=== PATIENT | male | born 1995 | race Caucasian/White ===

== ENCOUNTER 2018-03-11 19:10 | Emergency (ER) | payer OTHER ==
[2018-03-11 20:19] VITALS: BP 0/0
--- NOTE | 2018-03-11 20:19 | UC ---
HPI Febrile Illness - HPI Summary HPI Summary: ONSET LAST NIGHT OF CHILLS, FEVER TMAX 102, BODY ACHES, MILD COUGH/CONGESTION, HEADACHE AND SORE THROAT. HAS A HISTORY OF POSTSTREPTOCOCCAL GLOMERULONEPHRITIS DIAGNOSED IN 2014. HAS NOT HAD FOLLOW-UP IN ABOUT 2 YEARS BUT THINKS HE HAS FULLY RECOVERED. NO URINARY SYMPTOMS. PT REQUESTS STREP AND FLU TESTING. - History of Current Complaint Chief Complaint: UCRespiratory Time Seen by Provider: 03/11/18 19:21 Hx Obtained From: Patient Onset/Duration: Started Days Ago - 1 DAY AGO Timing: Constant Initial Severity: Moderate Pain Intensity: 2 Pain Scale Used: 0-10 Numeric Aggravating Factors: Nothing Alleviating Factors: OTC Medicine - TYLENOL Associated Signs and Symptoms: Chills, Headache, Myalgia - Allergy/Home Medications Allergies/Adverse Reactions: Allergies Allergy/AdvReac Type Severity Reaction Status Date / Time ibuprofen Allergy GI Upset Verified 03/11/18 19:27 Home Medications: Home Medications Acetaminophen TAB* [Tylenol TAB*] 650 mg PO Q6HR PRN 03/11/18 [History Confirmed 03/11/18] PMH/Surg Hx/FS Hx/Imm Hx - Additional Past Medical History Additional PMH: POSTSTREPTOCOCCAL GLOMERULONEPHRITIS DIAGNOSED 2014 - Surgical History Surgical History: Yes Surgery Procedure, Year, and Place: APPENDECTOMY 2009 - Family History Known Family History: Positive: Hypertension - Social History Alcohol Use: Occasionally Substance Use Type: None Smoking Status (MU): Never Smoked Tobacco Review of Systems Constitutional: Fever, Chills, Fatigue ENT: Sore Throat Respiratory: Cough Cardiovascular: Negative Gastrointestinal: Negative Genitourinary: Negative Musculoskeletal: Myalgia Neurological: Headache All Other Systems Reviewed And Are Negative: Yes Physical Exam Triage Information Reviewed: Yes Appearance: Well-Appearing, No Pain Distress, Well-Nourished Vital Signs: Initial Vital Signs Temp 101.9 F 03/11/18 19:19 Pulse 105 03/11/18 19:19 Resp 18 03/11/18 19:19 BP 135/81 03/11/18 19:19 Pulse Ox 96 03/11/18 19:19 Vital Signs Reviewed: Yes Eyes: Positive: Conjunctiva Clear ENT: Positive: Hearing grossly normal, Pharyngeal erythema, TMs normal Neck: Positive: Supple, Nontender, Other: - 1 CM NONTENDER, SOFT, FREELY MOBILE LEFT POSTERIOR AURICULAR LYMPH NODE (PT STATES STABLE FOR YEARS) Respiratory Exam: Normal Cardiovascular Exam: Normal Abdomen Description: Positive: Nontender, Soft Musculoskeletal: Positive: No Edema Neurological: Positive: Alert Psychological: Positive: Age Appropriate Behavior Skin: Negative: rashes Diagnostics - Laboratory Diagnostic Studies Completed/Ordered: STREP NEG. FLU NEG Course/Dx - Diagnoses Clinic Provider Diagnoses: ACUTE VIRAL SYNDROME Discharge - Sign-Out/Discharge Documenting (check all that apply): Discharge/Admit/Transfer - Discharge Plan Condition: Stable Disposition: HOME Patient Education Materials: Viral Syndrome (ED) Forms: *Work Release Referrals: No Primary Care Phys,NOPCP [Primary Care Provider] - Additional Instructions: STREP AND FLU NEG. YOUR SYMPTOMS ARE LIKELY VIRALLY MEDIATED AND SHOULD RESOLVE ON THEIR OWN WITH TIME. NO INDICATION FOR ANTIBIOTICS AT PRESENT. REST, HYDRATE , OTC MEDS NEEDED. SEEK FOLLOW-UP IF YOU ARE NOT IMPROVING OVER THE NEXT 1-2 WEEKS. VIRAL SYNDROME: The physician has diagnosed a viral infection. Viruses not only cause "colds," but can cause many different symptoms including generalized aching, fever, headache, cough, diarrhea, nausea, vomiting, and fatigue. The treatment, for the most part, is simply relief of symptoms. This means that antibiotics are usually not given. Rest, fluids, pain medications and, occasionally, medication for the specific symptoms that are most bothersome will be prescribed. Go to the ED if you develop any new or unusual symptoms such as severe headache, stiff neck, high fever, chest pain, productive cough, or shortness of breath. You should be rechecked if you don't see marked improvement within 10 to 14 days. LABS CHECKED TODAY INCLUDE BLOOD COUNT, METABOLIC PANEL AND LYME SEROLOGY. CALL THE NUMBER BELOW FOR ASSISTANCE IN ESTABLISHING WITH A PCP An additional resource available to assist in finding the appropriate physician for your health care needs is [facility] ([facility]). You may contact them by calling [phone]. - Billing Disposition and Condition Condition: STABLE Disposition: HOME
[2018-03-12 11:07] LABS: Hematocrit 40 % (42-52); Mean Corpuscular HGB Conc 35 g/dl (31-36); Mean Corpuscular Hemoglobin 30 pg (27-31); Mean Corpuscular Volume 87 fL (80-94); Platelet Count 237 10^3/ul (150-450); Red Blood Count 4.63 10^6/ul (4.0-5.4); Red Cell Distribution Width 12 % (10.5-15); White Blood Count 8.3 10^3/ul (3.5-10.8)
[2018-03-12 11:18] LABS: EGFR Non-African American 95.6 (>60)
[2018-03-12 12:13] LABS: ABS Basophils 0 10^3/ul (0-0.2); ABS Eosinophils 0.1 10^3/ul (0-0.6); ABS Lymphocytes 0.5 10^3/ul (1.0-4.8); ABS Monocytes 0.5 10^3/ul (0-0.8); ABS Neutrophils 7.1 10^3/ul (1.5-7.7); ABS Nucleated RBC 0 10^3/ul; Eosinophil % 1.5 % (0-6); Lymphocyte % 6.1 % (25-47); Nucleated Red Blood Cells % 0.3
== END 2018-03-11 20:35 | disposition home or self-care (01) ==
LOC: UCEAST 19:10
DX: B34.9 Viral infection, unspecified (principal); Z88.6 Allergy status to analgesic agent
CPT/HCPCS: 36415; 80053; 85025; 86618; 87502; 87651; 99201; G0463